=== PATIENT | female | born 1940 | race Asian ===

== ENCOUNTER 2020-03-21 18:08 | Inpatient (IN) | payer MEDICARE, OTHER ==
[~2020-03-21] VITALS: Ht 165.1 cm; Wt 67.6 kg
--- NOTE | 2020-03-21 18:28 | NUR ---
ED Nurse Note: Pt ambulated to ed with steady gait. per pt she was gardening today at 1730 and felt the urge to deficate. pt states that she had diarrhea with bright red blood. pt reports 15 mins afterwards she had another diarrheal episode and it had blood like clots. pt warm to touch, aox4, calm and cooperative. IV site etablished.
[2020-03-21 18:30] VITALS: BP 153/66
[2020-03-21] MEDS ORDERED: Pantoprazole Inj IVP ONE (18:45)
[2020-03-21] MEDS ORDERED: cefTRIAXone 1 GM in NS 55 ML IV ONE (18:45)
[2020-03-21 18:54] LABS: BASOPHILS % (AUTO) 1.8 % (0.0-2.0); HEMATOCRIT 39.7 % (37.0-47.0); LYMPHOCYTES % (AUTO) 47.6 % (20.0-45.0); MEAN CORPUSCULAR VOLUME 92 FL (80-99); MONOCYTES % (AUTO) 8.1 % (1.0-10.0); NEUTROPHILS % (AUTO) 38.4 % (45.0-75.0); PLATELET COUNT 202 K/UL (150-450); RED BLOOD COUNT 4.33 M/UL (4.20-5.40); RED CELL DISTRIBUTION WIDTH 12.5 % (11.6-14.8); WHITE BLOOD COUNT 8.1 K/UL (4.8-10.8)
[2020-03-21] MEDS ORDERED: Omnipaque-300 100ml vial INJ PRN (19:00)
[2020-03-21 19:04] LABS: ANION GAP 10 mmol/L (5-15); BLOOD UREA NITROGEN 18 mg/dL (7-18); CALCIUM 9.6 MG/DL (8.5-10.1); CARBON DIOXIDE 25 MMOL/L (21-32); CHLORIDE 107 MMOL/L (98-107); POTASSIUM 3.7 MMOL/L (3.5-5.1); SODIUM 142 MMOL/L (136-145)
--- NOTE | 2020-03-21 19:04 | NUR ---
HAND-OFF: Report given to lelo mello rn.
--- NOTE | 2020-03-21 19:05 | NUR ---
ED Nurse Note: received report from Ct GARCIA. Pt vss, nad, calm, and resting.
[2020-03-21 19:08] LABS: ALANINE AMINOTRANSFERASE 32 U/L (12-78); ALBUMIN 4.4 G/DL (3.4-5.0); ALBUMIN/GLOBULIN RATIO 1.3 (1.0-2.7); ALKALINE PHOSPHATASE 76 U/L (46-116); ASPARTATE AMINO TRANSFERASE 26 U/L (15-37); BILIRUBIN,TOTAL 0.5 MG/DL (0.2-1.0)
--- NOTE | 2020-03-21 19:19 | Emergency Room Report ---
History of Present Illness General Chief Complaint: Gastrointestinal Bleed Source: Patient Present Illness HPI History of present illness: 79-year-old female with past medical history of hypertension presents with chief complaint of bright red bleeding per rectum x 2. She states she had 2 diarrhea movements today that were rylee blood. She denies history of colonoscopy. Denies blood thinner use, trauma, peptic ulcer disease, hematemesis, hemoptysis, fever, chills or recent travel. The patient's symptoms were gradual onset, severity was mild/moderate, duration since 1 day.. Past medical history: Coronary artery disease Past surgical history: Denies Smoking: Denies Alcohol use: Denies Drug use: Denies Review of systems: CONST: No fevers or chills, No night sweats PULMONARY: No productive cough, No shortness of breath CARDIAC: No chest pain, No palpitations GI: No vomiting, No diarrhea , No melena_+BRBPR : No dysuria, No hematuria, No discharge NEURO: No new_focal_weakness_or_numbness, No confusion, No vision changes 14 point Review of Systems is otherwise negative except per HPI Physical Exam: GENERAL: Awake_alert_ nontoxic, no acute distress Spo2 99 % on [RA], [normal] EYES: Extraocular muscles are intact. Conjunctivae clear. Lids without swelling ENT: External nose and ear normal_in_appearance. Oropharynx clear. Head_ atraumatic, Moist_oral_mucosa NECK: No JVD. No meningismus. No thyromegaly. Supple. Trachea midline RESP: Normal respiratory effort. Symmetric rise. No stridor. Clear_to_ auscultation_No_rales_No_wheezes CARDIAC: Regular rate and regular rhythm on_auscultation No_significant pedal edema. ABDOMEN: Soft. Nondistended. Nontender_No_rebound_or_guarding. No pulsatile mass Rectal: Bleeding per rectum. No hemorrhoids. No anal fissures. Normal tone and sensation. Chaperoned with nurse at bedside MSK: Normal muscle tone, without rigidity. Extremities without asymmetric deformity or swelling. SKIN: Warm and dry. No visible cyanosis or pallor NEUROLOGIC: Alert, oriented x3. Motor_and_sensation_grossly_intact. No truncal ataxia. Gait_normal Psych: Normal mood and affect, normal judgment and insight - COORDINATION OF CARE Case was discussed with: Patient Any labs and imaging that were ordered were interpreted as part of the medical decision making: Medical Decision Making/Plan: Initial vital signs are notable for hypertension. Patient was also mildly tachycardic with heart rate in the low 110s. Abdominal examination was benign. No pulsatile masses were palpated. Rectal examination was performed with machine carton marker. It was notable for bright red bleeding per rectum. There were no masses in the anal vault, fissures, or hemorrhoids. Labs show hemoglobin of 13. No previous hemoglobin to compare to. There is no indication for transfusion at this time. While in the emergency department, patient had a large 100 cc bright red bowel movement. She felt presyncopal after this. EKG shows sinus alan without acute ischemia. CT abdomen pelvis shows rectal wall thickening representing inflammatory proctitis. No perforation. Given the possibility of a active lower GI bleeding source versus bleeding peptic ulcer, Protonix IV was immediately started. Rocephin given. Because the patients hemoglobin is stable, emergent transfusion was not started ; however, the patient will need to be admitted for serial hemoglobin checks, and if downtrending, transfusion may be indicated at a later time. Patient is protecting their airway, no active vomiting, no need for NG tube or intubation at this time. The patient is currently hemodynamically stable, and stable for transfer to the floor at this time. The patient has been stabilized to the best of this emergency department's capabilities. Given the patient's medical needs, appropriate facilities for transfer were discussed and the decision has been made to transfer this patient to [facility]. The receiving facility has the capacity and capabilities to provide care for the patient. I spoke with Dr steni who accepted the patient in transfer. The patient has been informed and updated of their current clinical status. The patient has given verbal consent for the transfer. The risks and benefits were explained and the patient verbalizes their understanding. The patient will be transported by [facility]. Allergies: Coded Allergies: No Known Allergies (Unverified , 03/21/20) COVID-19 Screening Contact w/high risk pt: No Experienced COVID-19 symptoms?: No COVID-19 Testing performed GLASS ARTIST: No Patient History Last Menstrual Period: na Nursing Documentation-PMH Past Medical History: No History, Except For Hx Hypertension: Yes Physical Exam Vital Signs Date Time Temp Pulse Resp B/P (MAP) Pulse Ox O2 Delivery O2 Flow Rate FiO2 7/21/20 18:19 98.4 80 17 185/92 (123) 97 Room Air Sp02 EP Interpretation: reviewed, normal Medical Decision Making Diagnostic Impression: Primary Impression: Gastrointestinal hemorrhage Additional Impressions: Bright red blood per rectum Tachycardia EKG Diagnostic Results EKG Time: 19:08 EP Interpretation: 59 Other Impression 12-lead EKG (interpreted by me) Time: 1907 Indication: [Rhythm analysis] Tracing visualized and Interpreted by me. Rhythm: Sinus bradycardia Rate: 59 bpm QTc: 427 Morphology: No_significant_ST_elevations_or_depressions, No STEMI Impression: Sinus bradycardia, nl axis, nl intervals. Rhythm Strip Diag. Results Rhythm Strip Time: 20:02 EP Interpretation: yes Rate: 59 Rhythm: no PVC's, no ectopy, other - sinus bradycardia Other Impression Normal Reevaluation Time: 20:02 Last Vital Signs Date Time Temp Pulse Resp B/P (MAP) Pulse Ox O2 Delivery O2 Flow Rate FiO2 03/21/20 18:30 98.4 69 22 153/66 97 Room Air Status: improved Disposition: ADMITTED INPATIENT Admit Decision Time: 20:00 Condition: Stable - transfer to [facility] Referrals: NON PHYSICIAN (PCP) Grace Metz D.O. Mar 21, 2020 19:19
--- NOTE | 2020-03-21 19:32 | NUR ---
ED Nurse Note: pt went for cta. consent for contrast obtained from patient. Pt verbalized understanding of contrast procedure
--- NOTE | 2020-03-21 19:45 | NUR ---
ED Nurse Note: pt back from cta
--- NOTE | 2020-03-21 19:58 | Diagnostic Imaging Report ---
EXAM: CT Abdomen and Pelvis With Intravenous Contrast CLINICAL HISTORY: PAIN TECHNIQUE: Axial computed tomography images of the abdomen and pelvis with intravenous contrast. CTDI is 6 mGy and DLP is 293 mGy-cm. One or more of the following dose reduction techniques were used: automated exposure control, adjustment of the mA and/or kV according to patient size, use of iterative reconstruction technique. Coronal and sagittal reformatted images were created and reviewed. COMPARISON: No relevant prior studies available. FINDINGS: Lung bases: Unremarkable. No mass. No consolidation. ABDOMEN: Liver: Unremarkable. No mass. Gallbladder and bile ducts: Cholecystectomy. No ductal dilation. Pancreas: Unremarkable. No mass. No ductal dilation. Spleen: Unremarkable. No splenomegaly. Adrenals: Unremarkable. No mass. Kidneys and ureters: Subcentimeter right renal hypodensities likely representing benign cysts requiring no additional follow-up. Otherwise unremarkable kidneys. No hydronephrosis. Stomach and bowel: Rectal wall thickening could represent infectious or inflammatory proctitis in the proper context; correlate with outpatient colonoscopy to exclude neoplasm. No obstruction. PELVIS: Appendix: No findings to suggest acute appendicitis. Bladder: Urinary bladder wall thickening can be incidental, due to high outlet pressures, or could represent cystitis. Reproductive: Unremarkable as visualized. ABDOMEN and PELVIS: Intraperitoneal space: Unremarkable. No free air. No significant fluid collection. Bones/joints: Multilevel age-related degenerative spine findings and osteopenia. No acute fracture. No dislocation. Soft tissues: Unremarkable. Vasculature: Atherosclerotic vascular disease. No abdominal aortic aneurysm. Lymph nodes: Unremarkable. No enlarged lymph nodes. IMPRESSION: 1. Rectal wall thickening could represent infectious or inflammatory proctitis in the proper context; correlate with outpatient colonoscopy to exclude neoplasm. 2. Urinary bladder wall thickening can be incidental, due to high outlet pressures, or could represent cystitis. 3. Cholecystectomy.
--- NOTE | 2020-03-21 20:15 | NUR ---
ED Nurse Note: pt signed consent and verbalized understanding for transfer to [facility].
--- NOTE | 2020-03-21 20:17 | NUR ---
ED Nurse Note: per patient's request, called family member to notify of transfer to [facility].
--- NOTE | 2020-03-21 20:18 | NUR ---
ED Nurse Note: pt unable to provide urine at this time. will attempt at a later time. ermd notified
--- NOTE | 2020-03-21 20:48 | NUR ---
ED Nurse Note: Female RN chaperoned ERMD for rectal exam.
--- NOTE | 2020-03-21 21:00 | NUR ---
ED Nurse Note: urine collected and sent to lab
[2020-03-21 21:39] LABS: APPEARANCE,URINE CLEAR; BILIRUBIN, URINE NEGATIVE (NEGATIVE); COLOR,URINE PALE YELLOW; GLUCOSE, URINE (UA) NEGATIVE (NEGATIVE); KETONES,URINE NEGATIVE (NEGATIVE); LEUKOCYTE ESTERASE ,URINE NEGATIVE (NEGATIVE); NITRITE,URINE NEGATIVE (NEGATIVE); PH,URINE 6 (4.5-8.0); PROTEIN,URINE NEGATIVE (NEGATIVE); UROBILINOGEN,URINE NORMAL MG/DL (0.0-1.0)
--- NOTE | 2020-03-21 21:58 | NUR ---
ED Nurse Note: notified the patient and the son (Gino) that the patient is going to be admitted to [place].
--- NOTE | 2020-03-21 22:00 | NUR ---
ED Nurse Note: unable to obtain occult blood stool at this time.
--- NOTE | 2020-03-21 22:24 | NUR ---
ED Nurse Note: GAVE REPORT TO JOSE CARLOS GARCIA. ENDORSED PLAN OF CARE OF PATIENT
[2020-03-21] MEDS ORDERED: BENICAR5 MG ORAL (22:27)
--- NOTE | 2020-03-21 22:42 | NUR ---
ED Nurse Note: pt taken up to MS floor room 421-2 accomoanied by equipment engineering technician via sarita in stable condition. Belonging list signed off. IV site to left AC 20g intact.
[2020-03-21] MEDS ORDERED: Morphine Sulfate 2mg/ml Inj(IV/IM USE ONLY) IVP PRN (22:45)
[2020-03-21] MEDS ORDERED: Acetaminophen 650 MG SUPP RECTAL PRN (22:45)
[2020-03-21 23:15] VITALS: BP 160/79
[2020-03-22] MEDS ORDERED: Morphine Sulfate 2mg/ml Inj(IV/IM USE ONLY) IVP PRN (01:15)
[2020-03-22] MEDS ORDERED: D5 1/2NS 1,000 ML IV SCH (01:15)
[2020-03-22 04:17] VITALS: BP 150/71
[2020-03-22 05:49] LABS: BASOPHILS % (AUTO) 1.3 % (0.0-2.0); EOSINOPHILS % (AUTO) 3.7 % (0.0-3.0); HEMATOCRIT 37.3 % (37.0-47.0); LYMPHOCYTES % (AUTO) 39.7 % (20.0-45.0); MEAN CORPUSCULAR VOLUME 92 FL (80-99); MONOCYTES % (AUTO) 9.6 % (1.0-10.0); NEUTROPHILS % (AUTO) 45.7 % (45.0-75.0); PLATELET COUNT 174 K/UL (150-450); RED BLOOD COUNT 4.05 M/UL (4.20-5.40); RED CELL DISTRIBUTION WIDTH 11.8 % (11.6-14.8); WHITE BLOOD COUNT 6.4 K/UL (4.8-10.8)
[2020-03-22 06:30] LABS: ANION GAP 9 mmol/L (5-15); BLOOD UREA NITROGEN 15 mg/dL (7-18); CALCIUM 8.7 MG/DL (8.5-10.1); CARBON DIOXIDE 27 MMOL/L (21-32); CHLORIDE 108 MMOL/L (98-107); POTASSIUM 3.4 MMOL/L (3.5-5.1); SODIUM 144 MMOL/L (136-145)
--- NOTE | 2020-03-22 07:01 | NUR ---
HAND-OFF: Report given to Christian Morley RN.
--- NOTE | 2020-03-22 07:02 | NUR ---
NURSE NOTES: Received patient in bed,awake, alert and oriented x4. Patient is NPO now. Denies nausea or vomiting. No episodes of bloody stool. Patient used the restroom,urinated but no bowel movement. Denies pain. Patient is aware that stool specimen is needed for OB stool. Explained the plan of care. Will wait for GI doctor. Abdomen is soft to touch.Call light within reach, bed is in lowest position and locked.Will continue plan of care.
[2020-03-22 08:00] VITALS: BP 141/79
[2020-03-22 12:00] VITALS: BP 145/76
--- NOTE | 2020-03-22 12:26 | General Progress Note ---
Assessment/Plan Problem List: (1) Gastrointestinal hemorrhage ICD Codes: K92.2 - Gastrointestinal hemorrhage, unspecified SNOMED: 32865047 (2) Bright red blood per rectum ICD Codes: K62.5 - Hemorrhage of anus and rectum SNOMED: 22838601 Assessment/Plan: plan colonoscopy tomorrow monitor H&H prn blood transfusion Subjective ROS Limited/Unobtainable: Yes Allergies: Coded Allergies: No Known Allergies (Unverified , 03/21/20) Objective Last 24 Hour Vital Signs Date Time Temp Pulse Resp B/P (MAP) Pulse Ox O2 Delivery O2 Flow Rate FiO2 03/22/20 09:00 Room Air 03/22/20 08:00 97.0 56 19 141/79 (99) 96 03/22/20 04:17 96.9 55 16 150/71 (97) 97 03/22/20 00:00 97.8 03/21/20 23:15 97.8 64 18 160/79 (106) 96 03/21/20 23:02 Room Air 03/21/20 22:43 98.2 72 18 150/70 97 Room Air 03/21/20 18:30 98.4 69 22 153/66 97 Room Air 03/21/20 18:30 69 22 03/21/20 18:19 98.4 80 17 185/92 (123) 97 Room Air Intake and Output 03/21/20 03/22/20 19:00 07:00 Intake Total 710 ml Output Total 0 ml Balance 0 ml 710 ml Intake IV Total 450 ml Other 260 ml Output Urine Total 0 ml # Voids 2 Laboratory Tests 03/21/20 18:10: White Blood Count 8.1, Red Blood Count 4.33, Hemoglobin 13.0, Hematocrit 39.7, Mean Corpuscular Volume 92, Mean Corpuscular Hemoglobin 30.0, Mean Corpuscular Hemoglobin Concent 32.8, Red Cell Distribution Width 12.5, Platelet Count 202, Mean Platelet Volume 8.4, Neutrophils (%) (Auto) 38.4L, Lymphocytes (%) (Auto) 47.6H, Monocytes (%) (Auto) 8.1, Eosinophils (%) (Auto) 4.0H, Basophils (%) ( Auto) 1.8, Prothrombin Time 10.7, Prothromb Time International Ratio 1.0, Activated Partial Thromboplast Time 26, Sodium Level 142, Potassium Level 3.7, Chloride Level 107, Carbon Dioxide Level 25, Anion Gap 10, Blood Urea Nitrogen 18, Creatinine 1.0, Estimat Glomerular Filtration Rate 53.3, Glucose Level 109H , Calcium Level 9.6, Total Bilirubin 0.5, Aspartate Amino Transf (AST/SGOT) 26, Alanine Aminotransferase (ALT/SGPT) 32, Alkaline Phosphatase 76, Troponin I 0.000, Total Protein 7.7, Albumin 4.4, Globulin 3.3, Albumin/Globulin Ratio 1.3 , Lipase 156 03/21/20 21:30: Urine Color Pale yellow, Urine Appearance Clear, Urine pH 6, Urine Specific [place] 1.005, Urine Protein Negative, Urine Glucose (UA) Negative, Urine Ketones Negative, Urine Blood 1+H, Urine Nitrite Negative, Urine Bilirubin Negative, Urine Urobilinogen Normal, Urine Leukocyte Esterase Negative, Urine RBC 0-2, Urine WBC 0, Urine Squamous Epithelial Cells None, Urine Bacteria None 03/22/20 04:52: White Blood Count 6.4, Red Blood Count 4.05L, Hemoglobin 12.0, Hematocrit 37.3, Mean Corpuscular Volume 92, Mean Corpuscular Hemoglobin 29.5, Mean Corpuscular Hemoglobin Concent 32.1, Red Cell Distribution Width 11.8, Platelet Count 174, Mean Platelet Volume 7.8, Neutrophils (%) (Auto) 45.7, Lymphocytes (%) (Auto) 39.7, Monocytes (%) (Auto) 9.6, Eosinophils (%) (Auto) 3.7H, Basophils (%) (Auto ) 1.3, Sodium Level 144, Potassium Level 3.4L, Chloride Level 108H, Carbon Dioxide Level 27, Anion Gap 9, Blood Urea Nitrogen 15, Creatinine 1.0, Estimat Glomerular Filtration Rate 53.3, Glucose Level 109H, Calcium Level 8.7 Height (Feet): 5 Height (Inches): 1.00 Weight (Pounds): 149 General Appearance: alert EENT: normal ENT inspection Neck: supple Cardiovascular: normal rate Respiratory/Chest: decreased breath sounds Abdomen: normal bowel sounds, non tender, soft Extremities: non-tender Giancarlo Shirley MD Mar 22, 2020 12:26
--- NOTE | 2020-03-22 12:30 | History and Physical Report ---
DATE OF ADMISSION: 03/21/2020 DATE AND TIME SEEN: 03/22/2020 at 10 a.m. CLINICAL PRODUCT SPECIALIST: Giancarlo Shirley MD. CHIEF COMPLAINT: Lower GI bleed. BRIEF HISTORY: This is an 79-year-old female, who lives at home, presents with a history of bright red blood per rectum at home, came to [place], diagnosed as above, admitted to medical floor. Currently, calm, in bed. No complaint. No chest pain. No shortness of breath. No nausea, vomiting, or diarrhea. PAST MEDICAL HISTORY: Nothing. PAST SURGICAL HISTORY: Thyroid, lap mariela ALLERGIES: Denies. MEDICATIONS: Include morphine, Zofran, Tylenol, ceftriaxone. SOCIAL HISTORY: No smoking. No alcohol. No intravenous drug abuse. FAMILY HISTORY: Noncontributory. PHYSICAL EXAMINATION: GENERAL: Calm in bed, oriented x3, in no acute distress. VITAL SIGNS: Temperature is 97 degrees, pulse 56, respirations 19, and blood pressure . CARDIOVASCULAR: No murmur. LUNGS: Distant and clear. ABDOMEN: Positive bowel sounds. Soft, nontender, nondistended. EXTREMITIES: Show no cyanosis, clubbing, or edema. NEUROLOGIC: The patient moves all extremities, slightly weak. LABORATORY AND DIAGNOSTIC DATA: Labs at this time show CBC is normal. BMP shows potassium 3.4, chloride 108, glucose 109. Troponin 0.00. INR is 1.0. PTT is 26. Urinalysis show 1+ blood. ASSESSMENT: Lower gastrointestinal bleed. PLAN: 1. NPO. 2. IV fluids. 3. GI followup. 4. CBC and BMP in the morning. 5. PT and dietary evaluation. 6. Discharge if cleared by GI. Alhaji Hernandez D.O. DR: LIBIA JOB#: [id number] CC:
[2020-03-22] MEDS ORDERED: Nulytely 4L ORAL ONE (14:00)
--- NOTE | 2020-03-22 14:42 | NUR ---
*-* INSURANCE *-* ALL AVAILABLE CLINICALS HAVE BEEN FAXED TO": TOM LEVIN/[facility] P:[phone] F:[phone]
--- NOTE | 2020-03-22 15:04 | NUR ---
CASE MANAGEMENT:INITIAL REVIEW 79 YR OLD FEMALE WALKED IN TO ED FROM HOME CC;GI BLEED SI;LOWER GI BLEED 98.4 80 22 185/92 97% ON RA ABD/PELVIS CT~1. Rectal wall thickening could represent infectious or inflammatory proctitis in the proper context; correlate with outpatient colonoscopy to exclude neoplasm. 2. Urinary bladder wall thickening can be incidental, due to high outlet pressures, or could represent cystitis. 3. Cholecystectomy. IS;PROTONIX IV ROCEPHIN IV ACETAMINOPHEN PO ADMITTED TO MED SURG FOR OBSERVATION DCP;FROM HOME
--- NOTE | 2020-03-22 15:10 | NUR ---
Discharge planning: Patient does not meet criteria for interqual admission CM made primary MD aware and GI Colonoscopy may be done as outpatient procedure At this time CM asked for discharge CM to f/u
--- NOTE | 2020-03-22 15:43 | NUR ---
MASTER COASTWISE YACHT NOTES SPOKE WITH WILL FROM [facility],INFORMED ME THE PATIENT WAS [facility], BUT WAS ADMITTED. INFORMED WILL PER DR WHITFIELD THIS PT IS STABLE FOR TRANSFER INTO NETWORK. PROVIDED DR WHITFIELD OFFICE NUMBER FOR MD TO MD HANDOFF.WAITING FOR CALL BACK FROM WILL. WILL FOLLOW UP.
[2020-03-22 16:00] VITALS: BP 153/73
--- NOTE | 2020-03-22 16:00 | NUR ---
PT Evaluation Note M.D. order received for PT evaluation and treatment. PT evaluation completed pls. refer to intervention for details. Patient seen and educated on safety with mobility. Patient able to perform return demonstration of independence with bed mobility, transfers and gait without assistive device x 150 feet without LOB. Patient also able to demonstrate safe and independent ability to manage up/down 3 steps after gait training. No further skilled PT required and no DME needed. Discharge PT services at this time. Thank you for this referral.
[2020-03-22] MEDS: D5 1/2NS w/KCl 20mEq 1,000 ML IV SCH (16:19)
--- NOTE | 2020-03-22 16:42 | NUR ---
NURSE NOTES: Covid swab done properly for procedure purpose ordered by Dr. Shirley and sent the specimen and patient consented to colonoscopy. Dr. Shirley explained to the patient about colonoscopy and patient fully understood about the procedure and possible side effects. Started bowel prep.No bloody stool noted so far.
--- NOTE | 2020-03-22 18:30 | NUR ---
NURSE NOTES: Received call from lab patient's covid test is negative. Collected stool specimen for OB stool and sent it to lab. Patient's family brought home med for HTN. Dr. Hernandez said ok to continue and patient agreed to dispense med.
--- NOTE | 2020-03-22 19:20 | NUR ---
NURSE NOTES: Received report from tash schmid,.patient is on bed, awake and verbally responsive. ambulatory. denies any pain or discomfort. with iv line on the left hand running d5 1/2 ns at 75 ml.hr. per binu," patient is for colonoscopy tomorrow, npo post midnight". call light and light button within easy reach.bed locked and in lowest position. will continue plan of care.
[2020-03-22 20:00] VITALS: BP 148/72
[2020-03-22] MEDS: OLMESARTAN 5 MG ORAL SCH (20:55)
[2020-03-23] VITALS (9 sets, daily range): BP systolic 119–148; BP diastolic 57–84
[2020-03-23] MEDS: D5 1/2NS w/KCl 20mEq 1,000 ML IV SCH (05:40)
[2020-03-23 06:20] LABS: ANION GAP 7 mmol/L (5-15); BLOOD UREA NITROGEN 8 mg/dL (7-18); CALCIUM 8.4 MG/DL (8.5-10.1); CARBON DIOXIDE 28 MMOL/L (21-32); CHLORIDE 109 MMOL/L (98-107); CREATININE 0.9 MG/DL (0.55-1.30); POTASSIUM 3.7 MMOL/L (3.5-5.1); SODIUM 144 MMOL/L (136-145)
[2020-03-23 06:22] LABS: BASOPHILS % (AUTO) 1.7 % (0.0-2.0); EOSINOPHILS % (AUTO) 6.1 % (0.0-3.0); HEMATOCRIT 35.2 % (37.0-47.0); HEMOGLOBIN 11.6 G/DL (12.0-16.0); LYMPHOCYTES % (AUTO) 35.8 % (20.0-45.0); MEAN CORPUSCULAR VOLUME 91 FL (80-99); MONOCYTES % (AUTO) 10.2 % (1.0-10.0); NEUTROPHILS % (AUTO) 46.3 % (45.0-75.0); PLATELET COUNT 158 K/UL (150-450); RED BLOOD COUNT 3.85 M/UL (4.20-5.40); RED CELL DISTRIBUTION WIDTH 11.7 % (11.6-14.8); WHITE BLOOD COUNT 4.9 K/UL (4.8-10.8)
--- NOTE | 2020-03-23 07:23 | NUR ---
HAND-OFF: Report given to chema arnold.patient is awake. no sob. call light and light button within easy reach. plan of care endorsed.
--- NOTE | 2020-03-23 07:30 | NUR ---
NURSE NOTES: RECEIVED PATIENT A/A/OX4, AMBULATORY. NPO EXCEPT MEDS/ICE CHIPS PER MD ORDER FOR COLONOSCOPY. IV ACCESS PATENT AND INTACT. IVF INFUSING WELL. 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 NO ACUTE RESP DISTRESS NOTED. KEEP BED IN THE LOWEST POSITION. SIDERAILS ARE UP X3. CALL LIGHT IS WITHIN REACH. WILL CONT TO MONITOR.
--- NOTE | 2020-03-23 08:05 | General Progress Note ---
Assessment/Plan Problem List: (1) Tachycardia ICD Codes: R00.0 - Tachycardia, unspecified SNOMED: 3638172 (2) Bright red blood per rectum ICD Codes: K62.5 - Hemorrhage of anus and rectum SNOMED: 16475216 (3) Gastrointestinal hemorrhage ICD Codes: K92.2 - Gastrointestinal hemorrhage, unspecified SNOMED: 79169113 Status: stable, progressing Assessment/Plan: cbc bmp am gi f/u dc if clear Subjective Constitutional: Reports: weakness Allergies: Coded Allergies: No Known Allergies (Unverified , 03/21/20) All Systems: reviewed and negative except above Subjective calm in bed Objective Last 24 Hour Vital Signs Date Time Temp Pulse Resp B/P (MAP) Pulse Ox O2 Delivery O2 Flow Rate FiO2 03/23/20 04:00 97.6 62 19 120/71 (87) 99 03/23/20 00:00 98.0 63 20 119/70 (86) 97 03/22/20 21:00 Room Air 03/22/20 20:00 97.7 61 19 148/72 (97) 98 03/22/20 16:00 97.0 57 19 153/73 (99) 97 03/22/20 12:00 97.0 57 18 145/76 (99) 97 03/22/20 09:00 Room Air Intake and Output 03/22/20 03/23/20 18:59 06:59 Intake Total 690 ml 1200 ml Balance 690 ml 1200 ml Intake Oral 1200 ml IV Total 690 ml # Voids 2 4 Laboratory Tests 03/23/20 05:30: White Blood Count 4.9, Red Blood Count 3.85L, Hemoglobin 11.6L, Hematocrit 35.2L , Mean Corpuscular Volume 91, Mean Corpuscular Hemoglobin 30.0, Mean Corpuscular Hemoglobin Concent 32.8, Red Cell Distribution Width 11.7, Platelet Count 158, Mean Platelet Volume 7.6, Neutrophils (%) (Auto) 46.3, Lymphocytes (% ) (Auto) 35.8, Monocytes (%) (Auto) 10.2H, Eosinophils (%) (Auto) 6.1H, Basophils (%) (Auto) 1.7, Sodium Level 144, Potassium Level 3.7, Chloride Level 109H, Carbon Dioxide Level 28, Anion Gap 7, Blood Urea Nitrogen 8, Creatinine 0.9, Estimat Glomerular Filtration Rate > 60, Glucose Level 142H, Calcium Level 8.4L Height (Feet): 5 Height (Inches): 1.00 Weight (Pounds): 149 General Appearance: lethargic EENT: normal ENT inspection Neck: normal alignment Cardiovascular: normal peripheral pulses, normal rate, regular rhythm Respiratory/Chest: chest wall non-tender, lungs clear, normal breath sounds Abdomen: normal bowel sounds, non tender, soft Extremities: normal inspection Edema: no edema noted Arm (L), no edema noted Arm (R), no edema noted Leg (L), no edema noted Leg (R), no edema noted Pedal (L), no edema noted Pedal (R), no edema noted Generalized Neurologic: motor weakness Skin: normal pigmentation, warm/dry Alhaji Hernandez DO Mar 23, 2020 08:05
[2020-03-23] MEDS: OLMESARTAN 5 MG ORAL SCH (08:53)
--- NOTE | 2020-03-23 13:14 | NUR ---
*-* INSURANCE *-* ALL AVAILABLE CLINICALS HAVE BEEN FAXED TO": TOM LEVIN/[facility] P:[phone] F:[phone]
[2020-03-23] MEDS ORDERED: NS 500ML IVPB ONE (14:10)
--- NOTE | 2020-03-23 14:10 | NUR ---
NURSE NOTES: OFF THE UNIT TO GI LAB.HANDOFF RENDERED. IV SITE PATENT AND INTACT. CONSENT SIGNED.
--- NOTE | 2020-03-23 14:21 | Pre-Procedure Note/Attestation ---
Pre-Procedure Note/Attestation Complete Prior to Procedure Planned Procedure: not applicable Procedure Narrative: colonoscopy Indications for Procedure Pre-Operative Diagnosis: rectal bleed Attestation I attest that I discussed the nature of the procedure; its benefits; risks and complications; and alternatives (and the risks and benefits of such alternatives ), prior to the procedure, with the patient (or the patient's legal sales development representative). I attest that, if there was a reasonable possibility of needing a blood transfusion, the patient (or the patient's legal sales development representative) was given the [facility] standardized written summary, pursuant to the [place] Blood Safety Act ([place] Health and Safety Code # 1645, as amended). I attest that I re-evaluated the patient just prior to the surgery and that there has been no change in the patient's H&P, except as documented below: Giancarlo Shirley MD Mar 23, 2020 14:21
--- NOTE | 2020-03-23 14:45 | Immediate Post-Op Evaluation ---
Immediate Post-Op Evalulation Immediate Post-Op Evalulation Procedure: colonoscopy Date of Evaluation: Mar 23, 2020 Time of Evaluation: 14:44 IV Fluids: 500 Blood Products: 0 Blood Pressure Systolic: 112 Blood Pressure Diastolic: 65 Pulse Rate: 58 Respiratory Rate: 14 O2 Sat by Pulse Oximetry: 98 Temperature (Fahrenheit): 98.2 Nausea: No Vomiting: No Patient Status: awake, reacts, patent Hydration Status: adequate Drug: none Gabrielle Lorenzo CRNA Mar 23, 2020 14:45
--- NOTE | 2020-03-23 14:47 | Anethesia Preoperative Eval ---
Anesthesia Pre-op PMH/ROS General Date of Evaluation: Mar 23, 2020 Time of Evaluation: 14:00 Anesthesiologist: robel ASA Score: ASA 2 Mallampati Score Class I : Soft palate, uvula, fauces, pillars visible Class II: Soft palate, uvula, fauces visible Class III: Soft palate, base of uvula visible Class IV: Only hard plate visible Mallampati Classification: Class II Surgeon: stacy Diagnosis: anemia Surgical Procedure: colonoscopy Anesthesia History: none Family History: no anesthesia problems Allergies: Coded Allergies: No Known Allergies (Unverified , 03/21/20) Medications: see eMAR Patient NPO?: Yes NPO Date: Mar 23, 2020 NPO Time: 00:01 Past Medical History Cardiovascular: Reports: HTN; Denies: CAD, MT, valve dz, arrhythmia, other Pulmonary: Denies: asthma, COPD, KARRI, other Gastrointestinal/Genitourinary: Denies: GERD, CRI, ESRD, other Neurologic/Psychiatric: Denies: dementia, CVA, depression/anxiety, TIA, other Endocrine: Denies: DM, hypothyroidism, steroids, other HEENT: Denies: cataract (L), cataract (R), glaucoma, [place] (L), [place] (R), other Hematology/Immune: Reports: anemia; Denies: DVT, bleeding disorder, other Musculoskeletal/Integumentary: Denies: OA, RA, DJD, DDD, edema, other Anesthesia Pre-op Phys. Exam Physician Exam Last Vital Signs Date Time Temp Pulse Resp B/P (MAP) Pulse Ox O2 Delivery O2 Flow Rate FiO2 03/23/20 12:01 97.3 61 20 147/84 (105) 94 03/23/20 09:00 Room Air Constitutional: NAD Neurologic: CN 2-12 intact Cardiovascular: RRR Respiratory: CTA Gastrointestinal: S/NT/ND Airway Exam Mallampati Classification 2 Mallampati Score: Class II ROM: full Anesthesia Pre-op A/P Labs Hematology Test 03/23/20 05:30 White Blood Count 4.9 K/UL (4.8-10.8) Red Blood Count 3.85 M/UL (4.20-5.40) L Hemoglobin 11.6 G/DL (12.0-16.0) L Hematocrit 35.2 % (37.0-47.0) L Mean Corpuscular Volume 91 FL (80-99) Mean Corpuscular Hemoglobin 30.0 PG (27.0-31.0) Mean Corpuscular Hemoglobin Concent 32.8 G/DL (32.0-36.0) Red Cell Distribution Width 11.7 % (11.6-14.8) Platelet Count 158 K/UL (150-450) Mean Platelet Volume 7.6 FL (6.5-10.1) Neutrophils (%) (Auto) 46.3 % (45.0-75.0) Lymphocytes (%) (Auto) 35.8 % (20.0-45.0) Monocytes (%) (Auto) 10.2 % (1.0-10.0) H Eosinophils (%) (Auto) 6.1 % (0.0-3.0) H Basophils (%) (Auto) 1.7 % (0.0-2.0) Chemistry Test 03/23/20 05:30 Sodium Level 144 MMOL/L (136-145) Potassium Level 3.7 MMOL/L (3.5-5.1) Chloride Level 109 MMOL/L (98-107) H Carbon Dioxide Level 28 MMOL/L (21-32) Anion Gap 7 mmol/L (5-15) Blood Urea Nitrogen 8 mg/dL (7-18) Creatinine 0.9 MG/DL (0.55-1.30) Estimat Glomerular Filtration Rate > 60 mL/min (>60) Glucose Level 142 MG/DL (74-106) H Calcium Level 8.4 MG/DL (8.5-10.1) L Studies Pre-op Studies: EKG - sr Risk Assessment & Plan Plan: mac Pre-Antibiotics Drug: none Gabrielle Lorenzo [employer] Mar 23, 2020 14:47
--- NOTE | 2020-03-23 15:14 | NUR ---
NURSE NOTES: back to the unit. ambulates to the bathroom without any distress noted. will cont to monitor.
--- NOTE | 2020-03-23 15:17 | Endoscopy Procedure Note ---
Endoscopy Procedure Note General Indication for Procedure: gib Procedures Performed: colonoscopy Operative Findings/Diagnosis: diverticulosis Specimen: none Pt Tolerated Procedure Well: Yes Estimated Blood Loss: none Anesthesia Anesthesiologist: tiera Anesthesia: MAC Inserted Devices Implant(s) used?: No Quality Quality of Bowel Preparation: Good Did scope reach the cecum?: Yes Was there any complications?: No GI Core Measures 50 yrs or older w/o bx or poly: Not Applicable 10yrs. F/U recommended: Not Applicable Giancarlo Shirley MD Mar 23, 2020 15:17
--- NOTE | 2020-03-23 16:09 | NUR ---
NURSE NOTES: DISCHARGE HOME WITH INSTRUCTIONS. OWN MEDS RETURNED. PIV REMOVED. NO ACUTE RESP DISTRESS NOTED. VERIFIED HOME ADDRESS. IN STABLE CONDITION. Addendum: 03/23/20 at 1611 by RADHA CALLAWAY LVN PICKED UP BY DAUGHTERALYSSIA.
--- NOTE | 2020-03-23 16:45 | Procedure Note ---
SURGEON: Giancarlo Shirley MD. REFERRING PHYSICIAN: Alhaji Hernandez DO. PROCEDURE: Colonoscopy. ANESTHESIA: Per DIRECTOR OF MEDICARE, Gabrielle Tarrillmarilou. INSTRUMENT: Olympus adult flexible colonoscope. INDICATION: GI bleeding. REASON FOR PROCEDURE: The procedure, risks, benefits, and possible consequences, including hemorrhage, aspiration, perforation and infection, and alternative treatments, were explained to the patient/legal guardian by Dr. Giancarlo Shirley and the patient/legal guardian understood and accepted these risks. PROCEDURE IN DETAIL: After informed consent was obtained and the patient was adequately sedated, first rectal exam was performed, which was positive for internal hemorrhoids. Then, the scope was advanced from rectum into cecum, then subsequently to terminal ileum. Quality of prep was good. The patient had no evidence of any active bleeding at this time. She had diverticulosis mainly in the left colon, some scattered on the right colon. On the retroflexion of rectum, the patient also had evidence of internal hemorrhoids. The patient tolerated the procedure very well without any complication. SUMMARY OF FINDINGS: 1. Diverticulosis. 2. Internal hemorrhoids. RECOMMENDATIONS: Given no active bleeding, we recommend the patient to be discharged and follow as an outpatient. I want to thank Dr. Alhaji Hernandez for this kind referral. Giancarlo Shirley M.D. DR: JACOB JOB#: [id number] CC:
--- NOTE | 2020-03-24 13:38 | NUR ---
*-* INSURANCE *-* UPDATED CLINICALS HAVE BEEN FAXED NO D/C SUM IN THE SYSTEM: [employer] P:[phone] F:[phone]
--- NOTE | 2020-03-27 08:53 | Discharge Summary ---
Discharge Summary Discharge Summary _ DATE OF ADMISSION: 03/21/2020 DATE OF DISCHARGE: 03/23/2020 DISCHARGED BY: Dr. Hernandez REASON FOR ADMISSION: 79 years old female, with past medical history of hypertension, presented with complaint of bright red bleeding per rectum x2. Patient reported episodes of diarrhea with rylee blood. Patient denied prior colonoscopy. Patient denied use of blood thinners. Patient denied trauma, peptic ulcer disease, hematuria , or hemoptysis. No fever or chills. No recent traveling. Upon evaluation blood pressure was elevated 185/92 , otherwise vital signs were stable. Troponin negative. EKG revealed sinus bradycardia with heart rate 59 , no acute ischemic changes. Laboratory work-up revealed no leukocytosis ,stable hemoglobin, hematocrit and platelet count. Glucose 109. Stable electrolytes. Urinalysis revealed no evidence of urinary tract infection. Stool for occult blood was positive. CT of the abdomen and pelvis revealed rectal wall thickening , possibly representing infectious or inflammatory proctitis. Urinary bladder wall thickening , possibly due to high outlet pressure or cystitis. In emergency department patient received empiric antibiotics, IV Protonix, IV fluids and admitted for further management. CONSULTANTS: GI specialist Dr. Shirley [facility] COURSE: Patient admitted and started on the IV fluids and PPI. Patient initially was kept n.p.o. Patient subsequently undergone colonoscopy, which revealed diverticulosis and internal hemorrhoids. Hemoglobin and hematocrit remained stable, prior to discharge hemoglobin 11.6, hematocrit 25.2. Home medication continued. Given no active bleeding, GI specialist recommended discharge patient and follow -up as outpatient. Blood pressure stabilized. Patient clinically improved , No further epsidoes of bleeding, Gemoglibin remained stable. Patient was ready for discharge home. FINAL DIAGNOSES: Gastrointestinal hemorrhage Bright red blood per rectum Rectal bleeding Status post colonoscopy Diverticulosis Internal hemorrhoids DISCHARGE MEDICATIONS: See Medication Reconciliation list. DISCHARGE INSTRUCTIONS: Patient was discharged home. Follow-up with a primary care provider in 1 week. Patient reinforced the importance to follow-up with a GI specialist as outpatient I have been assigned to dictate discharge summary for this account. I was not involved in the patient's management. Ivon Mendoza NP Mar 27, 2020 08:53
--- NOTE | 2020-03-28 16:55 | NUR ---
*-* INSURANCE *-* DISCHARGE SUMMARY HAS BEEN FAXED TO: [facility] P:[phone] F:[phone]
== END 2020-03-23 16:00 | disposition home or self-care (01) | DRG 379 ==
LOC: EMR 18:38 → 4E 21:45 → EDBEDREQ 21:54
PROC: 0DJD8ZZ Inspection of Lower Intestinal Tract, Via Natural or Artificial Opening Endoscopic (ICD-10-PCS; principal; 2020-03-21)
DX: K57.91 Diverticulosis of intestine, part unspecified, without perforation or abscess with bleeding (principal); I10 Essential (primary) hypertension; R00.0 Tachycardia, unspecified; K64.8 Other hemorrhoids
CPT/HCPCS: 36415; 74177; 80048; 80053; 81003; 82270; 83690; 84484; 85025; 85610; 85730; 86850; 86900; 86901; 93005; 94003; 94150; 96365; 96375; 99285; U0002